=== PATIENT | female | born 1990 | race Caucasian/White ===

== ENCOUNTER 2025-10-26 07:18 | Outpatient (CLI) | payer BC, SELFPAY ==
--- NOTE | ~2025-10-26 | US_ITS ---
ULTRASOUND ABDOMEN LIMITED (RIGHT UPPER QUADRANT) Clinical History: liver damage from breast CA treatment Comparison: None Technique: Right upper quadrant sonography Findings: Liver: Normal size. Normal echotexture. No intrahepatic biliary ductal dilatation. Normal hepatopedal flow main portal vein. Common Duct: Normal caliber. 4 mm. Gallbladder: No stones. No wall thickening. No pericholecystic fluid. Pancreas: Unremarkable. IMPRESSION: 1. No acute findings. Reviewed, dictated and finalized at location R. N [facility] IMPRESSION: 1. No acute findings.
[2025-10-26 08:22] LABS: Albumin Level 4.4 g/dL (3.5-5.1); Alkaline Phosphatase 59 U/L (38-126); Anion Gap 7 mmol/L (4-12); Aspartate Amino Transferase 651 U/L (14-36); Bilirubin,Total 1.2 mg/dL (0.2-1.3); Blood Urea Nitrogen 17 mg/dL (7-17); Calcium 9.4 mg/dL (8.4-10.2); Carbon Dioxide 27 mmol/L (22-30); Chloride 106 mmol/L (98-107); Estimated Glomerular Filt Rate > 60; Glucose 88 mg/dL (65-110); Osmolality Calculated 290 mOsm/kg (285-295); Potassium 3.8 mmol/L (3.4-5.0); Sodium 140 mmol/L (137-145); Total Protein 6.6 g/dL (6.3-8.2)
[2025-10-26 08:26] LABS: Alanine Aminotransferase > 750 U/L (6-35)
== END 2025-10-26 07:19 | disposition home or self-care (01) ==
PROVIDERS: Internal Medicine; PCP Pathology Anatomic Pathology & Clinical Pathology; Visit Provider Pathology Anatomic Pathology & Clinical Pathology
DX: K71.6 Toxic liver disease with hepatitis, not elsewhere classified (principal); C50.919 Malignant neoplasm of unspecified site of unspecified female breast
CPT/HCPCS: 36415; 76705; 80053